=== PATIENT | female | born 1985 | race Caucasian/White ===

== ENCOUNTER 2019-09-03 13:49 | Emergency (ER) | payer SELFPAY ==
[~2019-09-03] VITALS: Ht 157.5 cm; Wt 80.0 kg
[2019-09-03 14:08] VITALS: BP 107/68
== END 2019-09-03 14:44 | disposition left against medical advice (07) ==
LOC: ER 13:49
DX: R07.9 Chest pain, unspecified (principal); E11.9 Type 2 diabetes mellitus without complications; Z85.3 Personal history of malignant neoplasm of breast
CPT/HCPCS: 99283